=== PATIENT | female | born 1985 | race Two or more races ===

== ENCOUNTER 2025-06-23 23:08 | Emergency (ER) | payer MEDICAID ==
[~2025-06-23] VITALS: Ht 162.6 cm; Wt 79.4 kg
[2025-06-23] MEDS ORDERED: KETOROLAC TROMETHAMINE INJ 30 MG/ML VIAL ONE (23:30)
[2025-06-23] MEDS: KETOROLAC TROMETHAMINE 15 MG/ML VIAL IV ONE (23:34)
[2025-06-23 23:36] LABS: PLATELET COUNT (AUTO) 470 K/uL (150-450); RED BLOOD CELL COUNT(AUTO) 4.63 MIL/uL (4.0-5.2); RED CELL DISTRIBUTION WIDTH 12.9 % (11.5-15.0); WHITE BLOOD COUNT (AUTO) 6.8 K/uL (4.3-11.0)
[2025-06-23 23:46] LABS: CALCIUM, SERUM 8.9 mg/dL (8.5-10.1); CREATININE 0.9 mg/dL (0.6-1.3); SODIUM SERUM 143 mmol/L (136-145); UREA NITROGEN, BLOOD 15 mg/dL (7-18)
[2025-06-23 23:50] LABS: INR 0.96 (0.91-1.10)
[2025-06-24 02:32] VITALS: BP 132/88; TEMP 98; O2SAT 96
== END 2025-06-24 02:33 | disposition home or self-care (01) ==
LOC: ER 23:14
DX: R07.89 Other chest pain (principal); Z86.718 Personal history of other venous thrombosis and embolism; Z79.01 Long term (current) use of anticoagulants
CPT/HCPCS: 99285; 96374; 71275; 93005; 85025; 80048; 36415; 84484; 85730; J1885; J7050; Q9967